=== PATIENT | female | born 1990 | race Caucasian/White ===

== ENCOUNTER 2016-07-28 17:59 | Emergency (ER) | payer BC, MEDICAID ==
[2016-07-28] MEDS ORDERED: PRENATAL VITAMI1 T15 PO (18:16)
[2016-07-28] MEDS ORDERED: TYLENOL 500MG500 MG PO (18:17)
[2016-07-28 21:08] VITALS: BP 93/60
== END 2016-07-28 21:24 | disposition home or self-care (01) ==
LOC: ED 17:59
DX: I95.1 Orthostatic hypotension (principal); E86.9 Volume depletion, unspecified; Z33.1 Pregnant state, incidental
CPT/HCPCS: J7030

== ENCOUNTER → 2016-08-08 | Outpatient (CLI) | payer BC, MEDICAID ==
[~2016-08-08] MED LIST: PRENATAL VITAMI1 T15 PO; TYLENOL 500MG500 MG PO
== END ==
LOC: RAD 10:40
DX: R39.11 Hesitancy of micturition (principal); Z33.1 Pregnant state, incidental

== ENCOUNTER 2016-11-26 14:37 | Emergency (ER) | payer BC, MEDICAID ==
[2016-11-26 16:53] VITALS: BP 112/68
== END 2016-11-26 16:55 | disposition home or self-care (01) ==
LOC: ED 14:37
DX: O9A.213 Injury, poisoning and certain other consequences of external causes complicating pregnancy, third trimester (principal); S96.912A Strain of unspecified muscle and tendon at ankle and foot level, left foot, initial encounter; Z3A.32 32 weeks gestation of pregnancy; X50.1XXA Overexertion from prolonged static or awkward postures, initial encounter; Y92.414 Local residential or business street as the place of occurrence of the external cause

== ENCOUNTER → 2021-08-15 | Outpatient (CLI) | payer BC | LOC: RAD 07:58 | DX: R10.2 Pelvic and perineal pain (principal); R10.9 Unspecified abdominal pain ==

== ENCOUNTER → 2023-06-25 | Outpatient (CLI) | payer OTHER | LOC: RAD 08:03 | DX: M79.674 Pain in right toe(s) (principal) ==